=== PATIENT | female | born 1965 | race Caucasian/White ===

== ENCOUNTER 2020-10-31 12:43 | Outpatient (CLI) | payer OTHER, SELFPAY ==
[2020-11-03 18:52] LABS: SARS-CoV-2 RNA PCR Positive
== END 2020-10-31 12:44 | disposition home or self-care (01) ==
LOC: CHSLAB 12:47
PROVIDERS: PCP Family Medicine; Visit Provider Family Medicine
DX: U07.1 COVID-19 (principal)
CPT/HCPCS: 87635; C9803; U0003

== ENCOUNTER 2020-12-29 08:12 | Outpatient (CLI) | payer OTHER, SELFPAY ==
--- NOTE | ~2020-12-29 | US_ITS ---
EXAMINATION: US art doppler w press EUGENIE SOLIMAN EXAM DATE: 12/29/2020 09:20 INDICATION: Peripheral artieral disease, decreased pedal pulses bilaterally. TECHNIQUE: Segmental pressures and plethysmographic and Doppler waveforms of the brachial and lower e xtremity arteries were obtained. There is no prior study for comparison. FINDINGS: Right and left brachial artery pressures of 130 mm Hg and 130 mm Hg, respectively, are concordant (no rmal difference <= 30 mmHg). The right and left thigh-brachial pressure indices are 1.01, 1.12, resp ectively (normal > 1.2). RIGHT LEG: The ankle-brachial index (SAM) is 1.09 (normal >= 0.9-1). The great toe-brachial index (TBI) is 0.58 (normal >= 0.65). The lower extremity ratios, segmental pressure gradients as follows; Proximal superficial femoral artery:- 1.01 (131 mmHg). Distal superficial femoral artery: ----- 1.08 (141 mmHg). Popliteal: 1.25 (163 mmHg). Dorsalis pedis: 0.95 (123 mmHg). Posterior tibial: 1.09 (142 mmHg). (Normal gradients <= 20-30 mmHg between adjacent levels on the same leg or the same levels on the two legs). Arterial waveforms are biphasic. LEFT LEG: The ankle-brachial index (SAM) is 0.96 (normal >= 0.9-1). The great toe-brachial index (TBI) is 0.68 (normal >= 0.65). The lower extremity ratios, segmental pressure gradients as follows; Proximal superficial femoral artery:- 1.12 (145 mmHg). Distal superficial femoral artery: ----- 1.11 (144 mmHg). Popliteal: 1.12 (146 mmHg). Dorsalis pedis: 0.82 (107 mmHg). Posterior tibial: 0.96 (125 mmHg). (Normal gradients <= 20-30 mmHg between adjacent levels on the same leg or the same levels on the two legs). Arterial waveforms are biphasic. IMPRESSION: 1. Right ankle-brachial index 1.09, normal. 2. Left ankle-brachial index 0.96, normal. 3. Segmental pressures as above. Reviewed, dictated and finalized at location B. ER ROOM MANAGER
== END 2020-12-29 08:13 | disposition home or self-care (01) ==
PROVIDERS: PCP Family Medicine; Visit Provider Podiatrist Foot & Ankle Surgery
DX: I73.9 Peripheral vascular disease, unspecified (principal)
CPT/HCPCS: 93923

== ENCOUNTER 2021-01-03 03:55 | Emergency (ER) | payer OTHER, SELFPAY ==
[2021-01-03 04:19] VITALS: BP 147/72; PULSE 87; RESP 16; TEMP 36.9; O2SAT 96
--- NOTE | 2021-01-03 04:48 | ED.WOUNDLAC ---
HPI - Wound/Laceration General Chief Complaint: Wound/Laceration Stated Complaint: Right foot laceration Source: patient Mode of arrival: ambulatory History of Present Illness HPI narrative: Patient comes in with laceration under right third toe after stepping on the heel of a boot. Related Data Home Medications Medication Instructions Recorded Confirmed venlafaxine 75 mg capsule,extended 75 mg PO DAILY 01/03/20 01/03/21 release 24 hr terbinafine HCl 250 mg PO DAILY 01/03/21 01/03/21 Allergies Allergy/AdvReac Type Severity Reaction Status Date / Time nkda Allergy Mild Uncoded 12/24/08 08:58 Review of Systems Constitutional: Constitutional: Reports no additional constitutional complaints Eyes: Eyes: Reports no additional eye complaints ENT: Reports system reviewed and no additional complaints, except as documented Cardiovascular: Cardiovascular: Reports no additional cardiovascular complaints Respiratory: Respiratory: Reports no additional respiratory complaints Gastrointestinal: Gastrointestinal: Reports no additional gastrointestinal complaints Genitourinary: Genitourinary: Reports no additional female genitourinary complaints Musculoskeletal: Musculoskeletal: Reports no additional musculoskeletal complaints Integumentary/Breasts: Skin/Breast: Reports system reviewed and no additional complaints, except as docu Neurologic: Reports system reviewed and no additional complaints, except as documented Psychiatric: Psychiatric: Reports no additional psychiatric complaints Endocrine: Endocrine: Reports no additional endocrine complaints Hematologic/Lymphatic: Hematologic/Lymphatic: Reports no additional hematologic/lymphatic complaints Allergic/Immunologic: Allergic/Immunologic: Reports no additional allergic/immunologic complaints [facility] Past Medical History Medical History Anxiety Arthritis Asthma Depression Family History Family History Other Asthma Diabetes mellitus Family history of chronic obstructive pulmonary disease Social History Social History Smoking status: Heavy tobacco smoker Alcohol intake: current Exam Const: General: no acute distress HENMT: Head: normal to inspection Ears: external ears normal and TM's normal bilaterally Face and sinus: normal facial exam Mouth: Yes moist mucous membranes Teeth and gingiva: dentition normal Throat: posterior oropharynx normal Eyes: Conjunctivae: conjunctivae normal Pupils: Equal, round and reactive pupils present Neck: Neck: normal visual inspection and no lymphadenopathy Chest: Chest palpation & inspection: normal inspection of the chest Resp: Effort & Inspection: normal respiratory effort Auscultation: clear to auscultation bilaterally Cardio: Rate: regular rate Rhythm: regular rhythm GI: GI Palp: Yes Soft to palpation (nontender ) Skin: General skin exam: normal color Neuro: General: patient oriented x3 and moves all extremities Extrem: General: normal to inspection Psych: Appearance: grossly normal Mental Status: mental status grossly normal Thought content: Yes Normal thought content present Course Course Emergency Course: Her wound was carefully washed, foreign material was removed. Following this the wound was closed with Durabond skin adhesive. She was given Adacel injection, and then keflex 500mg Po. I will send her home with keflex tid #30, as she is diabetic, and more at risk. Vital Signs Vital signs: Vital Signs Temperature 36.9 C 01/03/21 04:19 Pulse Rate 87 01/03/21 04:19 Respiratory Rate 16 01/03/21 04:19 Blood Pressure 147/72 H 01/03/21 04:19 Pulse Oximetry 96 01/03/21 04:19 Temperature 36.9 C 01/03/21 04:19 Pulse Rate 87 01/03/21 04:19 Respiratory Rate 16 01/03/21 04:19 Blood Pressure 147/72 H 02/0
[2021-01-03] MEDS: TETANUS,DIPHTHERIA,AC PERTUSSIS ADULT 0.5 ML (ADACEL) IM (04:55)
[2021-01-03] MEDS: CEPHALEXIN 500 MG CAPSULE PO (05:00)
[2021-01-03 05:03] VITALS: BP 124/86; PULSE 80; RESP 20; TEMP 36.6; O2SAT 98
== END 2021-01-03 05:04 | disposition home or self-care (01) ==
PROVIDERS: Emergency Provider Emergency Medicine; PCP Family Medicine
DX: S91.311A Laceration without foreign body, right foot, initial encounter (principal); W45.8XXA Other foreign body or object entering through skin, initial encounter
CPT/HCPCS: 12001; 90471; 90715; 99283; A9270

== ENCOUNTER 2021-02-05 17:31 | Outpatient (CLI) | payer OTHER, SELFPAY | END 2021-02-05 17:32 | disposition home or self-care (01) | LOC: ANHCOVIDVC 17:31 | PROVIDERS: PCP Family Medicine | DX: Z23 Encounter for immunization (principal) | CPT/HCPCS: 0001A; 91300 ==

== ENCOUNTER 2021-02-17 03:43 | Emergency (ER) | payer OTHER, SELFPAY ==
--- NOTE | ~2021-02-17 | CT_ITS ---
EXAMINATION: CT abdomen pelvis wo con DATE: 02/17/2021 05:19 INDICATION: Right flank pain for one week TECHNIQUE: Computed tomography (CT) of the abdomen and pelvis was performed without intravenous contr ast. The dose-length product was 508.05 mGy-cm. Automated exposure control and iterative reconstructi on technique were employed. COMPARISON: None. FINDINGS: There is emphysema. Lingular atelectasis. Heart size normal. No significant pleural or sharmaine cardial effusion. The liver, spleen, pancreas, adrenal glands and kidneys are unremarkable. No renal stones. Gallbladde r is present. Nonobstructive bowel gas pattern. Normal appendix. No free air or free fluid. There is mild diffuse heterogeneous sclerosis throughout all skeletal structures. Laminectomy and fus ion changes at L4-5. IMPRESSION: 1. No acute abdominal abnormality. 2: Heterogeneous diffuse sclerosis of the skeletal structures. Differential diagnosis includes metast atic disease, myelofibrosis, sickle cell disease, renal osteodystrophy and hyperthyroidism. Consider bone scan. 3: Emphysema. Reviewed, dictated and finalized at location A. IMPRESSION: 1. No acute abdominal abnormality. 2: Heterogeneous diffuse sclerosis of the skeletal structures. Differential norman gnosis includes metastatic disease, myelofibrosis, sickle cell disease, renal o steodystrophy and hyperthyroidism. Consider bone scan. 3: Emphysema.
[2021-02-17 03:50] VITALS: BP 144/77; PULSE 81; RESP 20; TEMP 36.3; O2SAT 96
--- NOTE | 2021-02-17 04:14 | ECG_ITS ---
Measurements Intervals [place] Rate: 76 P: 62 AK: 158 QRS: 36 QRSD: 94 T: 42 QT: 391 QTc: 441 Interpretive Statements SINUS RHYTHM BASELINE ARTIFACT- I, II, III, AVR, AVL, AVF, V1-V6 NORMAL ECG Electronically Signed On 02-17-2021 7:00:49 CDT by Jalen Dumont D.O.
--- NOTE | 2021-02-17 04:20 | PC.NURSE ---
Pt given toredol 30 mg IVP to relieve c/o right flank pain; IV normal saline hung and infusing as ordered.
--- NOTE | 2021-02-17 04:35 | ED.BACK ---
HPI - Back Pain/Injury General Chief Complaint: Back Pain/Injury Stated Complaint: back/side pain Source: patient Mode of arrival: ambulatory Limitations: no limitations History of Present Illness HPI Narrative: This is a 55-year-old female that presents with right flank pain radiating into her right groin area rates her pain about 8/10 started approximately 1 week ago thought that she strained a muscle but the pain was persistent had tried [id number] Tylenol with minimal relief has been having some dysuria with no hematuria currently no fever chills no nausea vomiting has a history of diabetes smoking history, with some no fever chills no nausea vomiting no diarrhea or constipation. patient has a history of previous laminectomy and fusion the lower lumbar spine at L4 and 5. MD elicited complaint: back pain Onset (ago): week(s) Timing: constant Severity: moderate Similar Symptoms Previously: No Quality: dull Radiation: groin Exacerbating factors: none Relieving factors: none Associated symptoms: denies other symptoms Related Data Home Medications Medication Instructions Recorded Confirmed venlafaxine 75 mg capsule,extended 75 mg PO DAILY 01/03/20 02/17/21 release 24 hr terbinafine HCl 250 mg PO DAILY 01/03/21 02/17/21 albuterol sulfate [Ventolin HFA] 2 puff INHALATION PRN PRN 02/17/21 02/17/21 alprazolam 0.5 mg PO PRN PRN 02/17/21 02/17/21 montelukast 10 mg PO DAILY 02/17/21 02/17/21 Allergies Allergy/AdvReac Type Severity Reaction Status Date / Time nkda Allergy Mild Uncoded 12/24/08 08:58 Review of Systems Review of Systems: All systems reviewed & are unremarkable except as noted in HPI and below [facility] Past Medical History Medical History (Updated 02/17/21 @ 05:48 by Sushil Taylor MD) Anxiety Arthritis Asthma Depression Family History Family History Other Asthma Diabetes mellitus Family history of chronic obstructive pulmonary disease Social History Social History Smoking status: Heavy tobacco smoker Alcohol intake: current Exam Const: General: no acute distress and alert Orientation/consciousness: patient oriented x3 HENMT: Head: normal to inspection and contusion Eyes: Conjunctivae: conjunctivae normal Pupils: Equal, round and reactive pupils present Direct Ophthalmoscopy: no photophobia Neck: Neck: normal visual inspection, no lymphadenopathy and no meningeal signs Chest: Chest palpation & inspection: normal inspection of the chest Resp: Effort & Inspection: normal respiratory effort Auscultation: clear to auscultation bilaterally Cardio: Rate: regular rate Rhythm: regular rhythm GI: Auscultation: normal bowel sounds : General: Yes CVA tenderness Urinary Catheter: Urinary Catheter: patent and draining and urine clear Back/Spine/Pelvis: Back: CVA tenderness Skin: General skin exam: normal color Rashes: no rashes Extrem: General: normal to inspection Psych: Appearance: grossly normal Mental Status: mental status grossly normal Affect: normal affect Thought content: Yes Normal thought content present Course Course Emergency Course: Patient received IV fluids and IV Toradol and that improved her pain level. Vital Signs Vital signs: Vital Signs Temperature 36.3 C L 02/17/21 03:50 Pulse Rate 81 02/17/21 03:50 Respiratory Rate 20 02/17/21 03:50 Blood Pressure 144/77 H 02/17/21 03:50 Pulse Oximetry 96 02/17/21 03:50 Temperature 36.3 C L 02/17/21 03:50 Pulse Rate 81 02/17/21 03:50 Respiratory Rate 20 02/17/21 03:50 Blood Pressure 144/77 H 02/17/21 03:50 Pulse Oximetry 96 02/17/21 03:50 MDM - Back Pain/Injury Lab Data Result diagrams: 02/17/21 04:40 02/17/21 04:40 Labs: Lab Results 02/17/21 02/17/21 02/17/21 Range/Units 04:40 04:40 04:40 WBC 8.1 (4.8-1
[2021-02-17 04:45] LABS: Basophils Absolute Auto 0.03 K/mm3 (0.00-0.10); Basophils Percent Auto 0.4 % (0.0-1.0); Eosinophils Absolute Auto 0.09 K/mm3 (0.02-0.50); Eosinophils Percent Auto 1.1 % (1.0-6.0); Hematocrit 39.2 % (35.0-49.0); Hemoglobin 13.2 g/dL (12.0-15.0); Immature Granulocyte Absolute 0.05 K/mm3 (0.00-0.00); Immature Granulocyte Percent A 0.6 % (0.0-0.0); Lymphocytes Absolute Auto 2.14 K/mm3 (1.10-4.50); Lymphocytes Percent Auto 26.3 % (18.0-42.0); Mean Corpuscular HGB Conc 33.7 g/dL (32.0-36.0); Mean Corpuscular Hemoglobin 30.9 pg (27.0-31.0); Mean Corpuscular Volume 91.8 fL (78.0-102.0); Monocytes Absolute Auto 0.57 K/mm3 (0.10-0.90); Neutrophils Absolute Auto 5.3 K/mm3 (1.7-7.2); Neutrophils Percent Auto 64.6 % (50.0-70.0); Platelet Count Result 238 K/mm3 (150-420); Red Blood Count 4.27 M/mm3 (4.20-5.40); White Blood Count 8.1 K/mm3 (4.8-10.8)
[2021-02-17] MEDS: SODIUM CHLORIDE 0.9% IV 1,000 ML 999 ML IV CONT (04:45)
[2021-02-17 04:48] LABS: Add Urine Microscopic? NO; Appearance Urine Clear (Clear); Bilirubin Urine Negative (Negative); Blood Urine Negative (Negative); Color Urine Yellow (Yellow); Glucose Urine UA Negative (Negative); Ketones Urine Negative (Negative); Leukocyte Esterase Ur Negative LEU/UL (Negative); Nitrate Urine Negative (Negative); Protein Urine Negative (Negative); Specific Grav Ur >= 1.030 (1.010-1.020); Urobilinogen Urine 0.2 mg/dL (0.2-1.0); pH Urine 5.5 (5.0-8.0)
[2021-02-17] MEDS: KETOROLAC 30 MG/ML VIAL (*BKC) IV PUSH (04:52)
[2021-02-17 05:06] LABS: Alanine Aminotransferase 35 U/L (14-59); Albumin Level 3.2 g/dL (3.4-5.0); Alkaline Phosphatase 80 U/L (46-116); Anion Gap 18 mmol/L (8-16); Aspartate Amino Transferase 23 U/L (15-37); Bilirubin,Total 0.3 mg/dL (0.00-1.00); Blood Urea Nitrogen 15 mg/dL (7-18); Calcium 8.4 mg/dL (8.5-10.1); Carbon Dioxide 17 mmol/L (21-32); Chloride 102 mmol/L (98-108); Estimated CRCL calculation 77 ml/min; Estimated Glomerular Filt Rate > 60; Glucose 207 mg/dL (70-99); Lipase 155 U/L (73-393); Osmolality Calculated 290 mOsm/kg (285-295); Potassium 4.1 mmol/L (3.5-5.1); Sodium 137 mmol/L (136-145); Total Protein 6.5 g/dL (6.4-8.2); Troponin I 5.4 ng/L (0.00-60.4)
[2021-02-17 05:37] LABS: Lactic Acid Reflex < 0.3 mmol/L (0.4-2.0)
[2021-02-17 05:56] VITALS: BP 135/85; PULSE 81; RESP 20; TEMP 36.2; O2SAT 99
== END 2021-02-17 06:03 | disposition home or self-care (01) ==
PROVIDERS: Emergency Provider Emergency Medicine; PCP Family Medicine
DX: S39.012A Strain of muscle, fascia and tendon of lower back, initial encounter (principal)
CPT/HCPCS: 36415; 74176; 80053; 81003; 83605; 83690; 84484; 85025; 93005; 96361; 96374; 99283; 99284; J1885; J7030

== ENCOUNTER 2021-02-26 17:30 | Outpatient (CLI) | payer OTHER, SELFPAY | END 2021-02-26 17:31 | disposition home or self-care (01) | LOC: ANHCOVIDVC 17:30 | PROVIDERS: PCP Family Medicine | DX: Z23 Encounter for immunization (principal) | CPT/HCPCS: 0002A; 91300 ==

== ENCOUNTER 2021-03-02 07:50 | Outpatient (CLI) | payer OTHER, SELFPAY ==
--- NOTE | ~2021-03-02 | NM_ITS ---
EXAMINATION: NM bone scan whole body DATE: 03/02/2021 12:08 INDICATION: Disorder of bone with heterogeneous diffuse sclerosis and CT TECHNIQUE: 24.8 mCi Tc-99m HDP was administered intravenously. Delayed whole-body scintigrams were o btained. COMPARISON: CT abdomen and pelvis dated 02/17/2021 FINDINGS: Mild increased uptake in the region of the posterior elements of the lower lumbar spine corresponding to an L4-L5 posterior spinal fusion with bilateral vertical jesus and pedicle screw fixation. Mild lik king degenerative increased uptake at the radial aspect of the left carpus. Tiny foci of subtle increa sed uptake at the bilateral patellae likely also either degenerative or enthesopathic in etiology. Ot herwise physiologic distribution of bone and soft tissue activity. IMPRESSION: 1. Mild increased bone uptake associated with an L4-L5 posterior spinal fusion. 2. Mild likely osteoarthritis related uptake at the radial aspect of the left carpus and subtle degen erative or enthesopathic foci of increased uptake at the bilateral patellae. Reviewed, dictated and finalized at location B. IMPRESSION: 1. Mild increased bone uptake associated with an L4-L5 posterior spinal fusion. 2. Mild likely osteoarthritis related uptake at the radial aspect of the left c arpus and subtle degenerative or enthesopathic foci of increased uptake at the bilateral patellae.
== END 2021-03-02 07:51 | disposition home or self-care (01) ==
PROVIDERS: PCP Family Medicine; Visit Provider Family Medicine
DX: M89.9 Disorder of bone, unspecified (principal)
CPT/HCPCS: 78306; A9561

== ENCOUNTER → 2021-11-12 13:02 | Outpatient (CLI) | payer OTHER, SELFPAY ==
--- NOTE | ~2021-11-12 | DEXA_ITS ---
Bone Density Report Name: DARIUS SCHROEDER Age: 56 Sex: Female Ethnicity: White Date of : 1965 Indication: postmenopausal; screening for osteoporosis; height loss; asthma or emphysema; Referring Provider: Bonilla Kahn Study: Bone densitometry was performed. Exam Date: November 12, 2021 Accession number: [id number] Bone Density: Region BMD T-score Z-score Classification AP Spine (L1, L2, L3) 1.187 1.5 2.6 Normal Femoral Neck (Left) 0.817 -0.3 0.8 Normal Total Hip (Left) 1.069 1.0 1.7 Normal Femoral Neck (Right) 0.860 0.1 1.2 Normal Total Hip (Right) 1.124 1.5 2.2 Normal Total Hip Mean 1.097 1.3 2.0 Normal World Health Organization criteria for BMD impression classify patients as: Normal (T-score at or above -1.0), Osteopenia (T-score between -1.0 and -2.5), or Osteoporosis (T-score at or below -2.5). 10-year Fracture Risk: FRAX not reported because: All T-scores for Spine Total, Hip Total, Femoral Neck at or above -1.0 Previous Exams: Region Exam Age BMD T-score BMD Change BMD Change Date g/cm2 vs Baseline vs Previous AP Spine(L1, L2, L3) 11/12/2021 56 1.187 1.5 -0.022 -0.022 10/06/2018 53 1.209 1.7 Total Hip(Left) 11/12/2021 56 1.069 1.0 -0.044* -0.044* 10/06/2018 53 1.113 1.4 Total Hip(Right) 11/12/2021 56 1.124 1.5 -0.010 -0.010 10/06/2018 53 1.134 1.6 *Denotes significance at 95% confidence level, LSC for AP Spine = 0.022 g/cm2, LSC for Total Hip = 0.027 g/cm2 Clinical Information Provided by Patient: Smokes Has the following medical conditions: Asthma or Emphysema Patient maximum height was 66 Menopause Age: 44 No regular weight bearing exercise Drinks caffeinated beverages Onset of menses at age 15 Number of children 1 Impression: The patient has normal bone mass. The patient has risk factors, including: smoking. The BMD for the Total Hip(Left) decreased, changing by -0.044 since the last DXA exam. Discussion: BONE DENSITY IS ABOVE THE MINIMUM DESIRABLE LEVEL AT ALL SKELETAL SITES TESTED. This patient?s bone mineral density is above the minimum desirable level (T-score -1.0 or better) at all sites measured. The patient should follow a healthful lifestyle (good nutrition with adequate calcium and vitamin D, and appropriate weight-bearing exercise). Follow-Up: Consider repeating this study in 3 to 4 years to reassess this patient's status, or s
== END ==
PROVIDERS: PCP Family Medicine; Visit Provider Internal Medicine
DX: Z78.0 Asymptomatic menopausal state (principal)
CPT/HCPCS: 77080

== ENCOUNTER 2022-12-20 14:54 | Outpatient (CLI) | payer OTHER, SELFPAY ==
--- NOTE | ~2022-12-20 | XR_ITS ---
EXAMINATION: XR ribs LT 2V w CXR 2V Exam Date/Time: 12/20/2022 15:25 SURGICAL INSTRUMENT MAKER HISTORY: ACUTE COUGH/CHEST PAIN-LT UPPER Comparison: 04/03/2018, CT abdomen and pelvis 02/17/2021. RESULT: Lines, tubes, and devices: None. Lungs and pleura: Diffuse bilateral and peripheral reticulonodular opacities. Emphysematous changes Minimal left posterior costophrenic angle blunting. Cardiothymic silhouette: Stable. Other: No acute osseous or upper abdominal finding. IMPRESSION: Pulmonary opacities may represent bronchiolitis, as can be seen with atypical infection, asthma, aspi ration, and small airways disease. Trace left pleural effusion versus chronic pleural scarring. No ac hoopa osseous finding in the left ribs. Reviewed, dictated and finalized at location K. ICAL INSTRUMENT MAKER IMPRESSION: Pulmonary opacities may represent bronchiolitis, as can be seen with atypical i nfection, asthma, aspiration, and small airways disease. Trace left pleural eff usion versus chronic pleural scarring. No acute osseous finding in the left rib s.
== END 2022-12-20 14:55 | disposition home or self-care (01) ==
LOC: CHSIMG 14:58
PROVIDERS: PCP Family Medicine; Visit Provider Family Medicine
DX: R05.1 Acute cough (principal); R07.89 Other chest pain; R91.8 Other nonspecific abnormal finding of lung field
CPT/HCPCS: 71046; 71100

== ENCOUNTER → 2023-01-31 17:32 | Outpatient (CLI) | payer OTHER, SELFPAY ==
--- NOTE | ~2023-01-31 | XR_ITS ---
EXAMINATION: XR chest 2V DATE: 01/31/2023 17:45 INDICATION: Cough. TECHNIQUE: Frontal and lateral views of the chest were obtained. COMPARISON: Chest 2 views 12/20/2022, CT abdomen and pelvis 02/17/2021 FINDINGS: There are lucencies in the lungs, consistent with emphysema. There are airspace opacities i n all lung zones with a mid zone predominance. No pleural effusion or pneumothorax. The heart size is normal. IMPRESSION: 1. Diffuse lung disease, likely pneumonia superimposed on emphysema. Reviewed, dictated and finalized at location A. R FITNESS INSTRUCTOR
== END ==
PROVIDERS: PCP Family Medicine; Visit Provider Family Medicine
DX: R05.2 Subacute cough (principal); J98.4 Other disorders of lung
CPT/HCPCS: 71046

== ENCOUNTER 2023-04-20 13:50 | Outpatient (CLI) | payer OTHER, SELFPAY ==
[2023-04-20 14:00] VITALS: PULSE 90; O2SAT 91
[2023-04-20 14:05] VITALS: PULSE 100; O2SAT 86
[2023-04-20 14:10] VITALS: PULSE 104; O2SAT 88
[2023-04-20 14:15] VITALS: PULSE 105; O2SAT 90
[2023-04-20 14:30] VITALS: PULSE 91; O2SAT 91
--- NOTE | 2023-04-20 14:48 | HOMEO2EVAL ---
Evaluation was performed at [facility] Home Oxygen Evaluation RC: Home Oxygen (O2) Evaluation Start: 04/20/23 14:45 Freq: Status: Active Protocol: RPE Activity Type Activity Date Activity User E-sign Co-sign Detail Recorded Client Recorded Date Recorded By Document 04/20/23 14:00 [email or web address] [email or web address] 04/20/23 14:47 DJO Document 04/20/23 14:05 [email or web address] [email or web address] 04/20/23 14:47 DJO Document 04/20/23 14:10 [email or web address] [email or web address] 04/20/23 14:47 DJO Document 04/20/23 14:15 [email or web address] [email or web address] 04/20/23 14:47 DJO Document 04/20/23 14:30 [email or web address] [email or web address] 04/20/23 14:47 DJO 04/20/23 04/20/23 04/20/23 14:00 14:05 14:10 Home O2 Evaluation [Oxygen] -Test Phase Resting Exercise Exercise -Oxygen Delivery Room Air Nasal Cannula Nasal Cannula -Oxygen Flow Rate (L/min) 1 [Pulse Oximetry] -Pulse Oximetry (90-100 %) 91 86 L 88 L [Pulse Rate] -Pulse Rate (60-100 beats/min) 90 100 104 H [Evaluation] -Activity Tolerance [Exercise] -Ambulation Distance (feet) -Ambulation Distance (meters) [Charges] -Treatment Charges O2 Evaluation - Outpatient 04/20/23 04/20/23 14:15 14:30 Home O2 Evaluation [Oxygen] -Test Phase Exercise Resting -Oxygen Delivery Nasal Cannula Room Air -Oxygen Flow Rate (L/min) 2 [Pulse Oximetry] -Pulse Oximetry (90-100 %) 90 91 [Pulse Rate] -Pulse Rate (60-100 beats/min) 105 H 91 [Evaluation] -Activity Tolerance Good [Exercise] -Ambulation Distance (feet) 750 -Ambulation Distance (meters) 228.58 [Charges] -Treatment Charges
--- NOTE | 2023-04-21 15:45 | WPDPFTINT ---
PFT Procedure Performed PFT Procedure Performed Spirometry with Pre/Post Bronchodilator Plethysmography (Lung Vol) Diffusing Cap (DLCO) Flow Vol Loop PFT Interpretation Lung volumes were measured with the body plethysmography method. The elevated FRC and RV are indicative of air trapping. The remaining lung volumes are unremarkable. Spirometry showed diminished expiratory flow rates and a diminished FEV1 to FVC ratio 46%, indicative of obstructive airway disease. Following administration of a bronchodilator there was significant increase in the FVC. Lung diffusion capacity is severely reduced at 33% predicted. The flow-volume loop is consistent with emphysema. Impression: Severe obstructive airway disease with evidence of air trapping and significant response to bronchodilators on this testing. Severely reduced lung diffusion capacity.
== END 2023-04-20 13:51 | disposition home or self-care (01) ==
PROVIDERS: Visit Provider Internal Medicine Pulmonary Disease
DX: J44.9 Chronic obstructive pulmonary disease, unspecified (principal); Z87.891 Personal history of nicotine dependence; R94.2 Abnormal results of pulmonary function studies
CPT/HCPCS: 94060; 94618; 94726; 94729

== ENCOUNTER → 2023-04-21 14:58 | Outpatient (CLI) | payer OTHER, SELFPAY ==
--- NOTE | ~2023-04-21 | CT_ITS ---
EXAMINATION:CT lung screening DATE: 04/21/2023 15:27 INDICATION: Personal history of tobacco dependence. Current smoker with 40 pack year history. TECHNIQUE: Computed tomography (CT) of the chest was performed without intravenous contrast. Automate d exposure control and iterative reconstruction technique were employed. The dose-length product (DLP ) was 68.78 mGy-cm. COMPARISON: CT abdomen and pelvis 02/17/2021, chest 2 views 01/31/23, 04/03/2018, 12/20/22 FINDINGS: There is moderate emphysema. There are scattered airspace and groundglass opacities involvi ng all lobes. There are areas of cavitation within airspace opacities in the lower lobes. There is mi ld bronchiectasis in right middle lobe and lingula. No pleural effusion. No pleural effusion. The hea rt size is normal. No pericardial effusion. The central pulmonary arteries are enlarged consistent wi th pulmonary arterial hypertension. There is mild mediastinal lymphadenopathy, likely reactive. There is mild thoracic spondylosis. IMPRESSION: 1. Lung-RADS category 0: Incomplete. Multifocal pneumonia with improvement from 01/31/23. Noncontrast, low-dose chest CT is recommended in 3 months. Reviewed, dictated and finalized at location E.
== END ==
PROVIDERS: PCP Internal Medicine Pulmonary Disease; Visit Provider Internal Medicine Pulmonary Disease
DX: Z12.2 Encounter for screening for malignant neoplasm of respiratory organs (principal); J18.9 Pneumonia, unspecified organism; Z87.891 Personal history of nicotine dependence
CPT/HCPCS: 71271

== ENCOUNTER → 2023-06-08 16:26 | Outpatient (CLI) | payer OTHER, SELFPAY ==
--- NOTE | ~2023-06-08 | XR_ITS ---
EXAMINATION: XR chest 2V DATE: 06/08/2023 16:49 INDICATION: Pneumonia, unspecified organism. TECHNIQUE: Frontal and lateral views of the chest were obtained. COMPARISON: Chest 2 views 01/31/23, chest CT 04/21/2023 FINDINGS: There are lucencies in the lungs, consistent with emphysema. There are patchy airspace opac ities in the mid and upper lung zones. No pleural effusion or pneumothorax. The heart size is normal. IMPRESSION: 1. Multifocal lung disease with improvement from 02/01/2023, consistent with pneumonia. 2. Emphysema. Reviewed, dictated and finalized at location E. IMPRESSION: 1. Multifocal lung disease with improvement from 02/01/2023, consistent with pneu monia. 2. Emphysema.
== END ==
PROVIDERS: PCP Internal Medicine Pulmonary Disease; Visit Provider Internal Medicine Pulmonary Disease
DX: J18.9 Pneumonia, unspecified organism (principal); J43.9 Emphysema, unspecified
CPT/HCPCS: 71046

== ENCOUNTER 2024-08-03 15:52 | Outpatient (CLI) | payer OTHER, SELFPAY ==
--- NOTE | ~2024-08-03 | CT_ITS ---
EXAMINATION:CT lung screening DATE: 08/03/2024 16:09 INDICATION: Personal history of nicotine dependence. Current smoker with 20 pack year history. TECHNIQUE: Computed tomography (CT) of the chest was performed without intravenous contrast. Automate d exposure control and iterative reconstruction technique were employed. The dose-length product (DLP ) was 112.67 mGy-cm. COMPARISON: Chest CT 04/21/2023 FINDINGS: There is severe emphysema. There are scattered nodules and masses in the lungs. For example , there is a 6.0 x 5.3 cm thick-walled cavitary mass in right lung lower lobe. There is a 4.3 x 1.7 c m mass in left lower lobe. There is a 3.6 x 1.7 cm mass in right upper lobe. The widespread lung find ings are improved from 04/21/2023. No pleural effusion. The heart size is normal. No pericardial effus ion. There is mild thoracic spondylosis. IMPRESSION: 1. Lung-RADS category 2S: Benign appearance or behavior. Continue annual screening with noncontrast l ow-dose chest CT in 12 months. 2. Multifocal lung disease with improvement from 04/21/2023, consistent with chronic pneumonia. Reviewed, dictated and finalized at location A. IMPRESSION: 1. Lung-RADS category 2S: Benign appearance or behavior. Continue annual screen ing with noncontrast low-dose chest CT in 12 months. 2. Multifocal lung disease with improvement from 04/21/2023, consistent with chr onic pneumonia.
== END 2024-08-03 15:53 | disposition home or self-care (01) ==
LOC: MICIMG 15:53
PROVIDERS: PCP Family Medicine; Visit Provider Physician Assistant
DX: Z12.2 Encounter for screening for malignant neoplasm of respiratory organs (principal); R91.8 Other nonspecific abnormal finding of lung field; Z87.891 Personal history of nicotine dependence
CPT/HCPCS: 71271

== ENCOUNTER 2024-11-26 15:00 | Outpatient (CLI) | payer OTHER, SELFPAY ==
--- NOTE | ~2024-11-26 | XR_ITS ---
CHEST RADIOGRAPH, PA AND LATERAL CLINICAL HISTORY: PULMONARY MYCOBACTERIAL INFECTION . COMPARISON: 06/08/2023 and 01/31/2023. Reference is also made to a CT examination of the chest dated 08/03/2024. TECHNIQUE: PA and lateral views of the chest. FINDINGS The cardiomediastinal silhouette is unremarkable. Redemonstration of parenchymal nodularity seen on previous CT examination. An air-fluid level is identified adjacent to the right hilum, measuring approximately 5 to 6 cm large ly unchanged from prior. 19 x 20 mm nodule within the left mid to upper lung field, increased in size from previous examinatio n when it measured 16 x 18 mm. Further evaluation with cross-sectional imaging may provide additional information, patient is clinic ally able. IMPRESSION: Redemonstration of parenchymal nodularity for which repeat evaluation with CT would provide additiona l information. (If the patient is clinically able) Reviewed, dictated and finalized at location A. E SUPERVISOR IMPRESSION: Redemonstration of parenchymal nodularity for which repeat evaluation with CT w ould provide additional information. (If the patient is clinically able)
== END 2024-11-26 15:01 | disposition home or self-care (01) ==
LOC: MICIMG 15:04
PROVIDERS: PCP Family Medicine; Visit Provider Internal Medicine Infectious Disease
DX: A31.0 Pulmonary mycobacterial infection (principal)
CPT/HCPCS: 71046

== ENCOUNTER 2025-08-30 16:00 | Outpatient (CLI) | payer OTHER, SELFPAY ==
--- NOTE | ~2025-08-30 | XR_ITS ---
EXAMINATION: XR chest 2V, 08/30/2025 16:10 CDT HISTORY: Pulmonary mycobacterial infection COMPARISON: Comparison CT 08/03/2024 Technique: 2 views obtained. Findings: Scattered bilateral infiltrates with some areas of ill-defined nodularity the largest in the left upper lobe 1.1 x 1 cm, largest focus of the right lower lobe 2.5 x 2.5 cm. No pneumothorax. Heart is normal size. Mediastinal and hilar contours are within normal limits. Bony thorax no acute abnormality. Impression: Bilateral pneumonia. Bilateral nodular densities with suggestion of underlying cavitation. These findings appear relatively unchanged compared to the previous CT however repeat CT is suggested for more direct comparison Reviewed, dictated and finalized at location P. Impression: Bilateral pneumonia. Bilateral nodular densities with suggestion of underlying cavitation. These findings appear relatively unchanged compared to the previous CT however repeat CT is suggested for more direct comparison
== END 2025-08-30 16:01 | disposition home or self-care (01) ==
PROVIDERS: PCP Family Medicine; Visit Provider Internal Medicine Infectious Disease
DX: A31.0 Pulmonary mycobacterial infection (principal); J18.9 Pneumonia, unspecified organism
CPT/HCPCS: 71046

== ENCOUNTER 2025-11-10 14:54 | Emergency (ER) | payer OTHER, SELFPAY ==
[2025-11-10] VITALS (17 sets, daily range): BP systolic 121–157; BP diastolic 58–75; PULSE 78–88; RESP 18–20; O2SAT 93–98
--- OUTSIDE RECORDS SUMMARY | 2025-11-10 14:57 | XMS_ITS | Clinical Summary ---
Author Organization [facility] Address [address] [place] [address] Care Team Providers Care Electronics Supervisor Name Role Phone Unavailable Primary Care Provider Unavailabl e Source Comments [facility],non-owned Affiliates and Associated Physician Practices is amultiple site organization consisting of ambulatory clinics and hospital sitesin [place], [place], [place] and [place]. This disclosure is being madepursuant to the Care Everywhere program and may not contain all information available regarding this patient. Last updated 18.[facility] Social History Tobacco Use Types Packs/Day Years Used Date Smoking Tobacco: Never Assessed Comments Unknown Sex and Gender Information Value Date Recorded Sex Assigned at Not on file Legal Sex Female 7:27 AM INFORMATION TECH Gender Identity Not on file Sexual Orientation Not on file Plan of Treatment Health Maintenance Due Date Last Done Comments COLOGUARD (AGES 45-75) - COL ON CA SCREENING 1966 COLON MONITORING 1966 COLONOSCOPY - COLON CA SCREENING 1966 CT COLONOGRAPHY - COLON CA SCREENING 1966 Colorectal Cancer Screening 1966 FIT - COLON CA SCREENING 1966 FLEX SIG - COLON CA SCREENING 1966 LIPID TESTING 1966 MAMMOGRAM 1966 HIV SCREENING 1981 HEPATITIS C SCREENING 04/28/1984 DTAP/TDAP/TD VACCINES (1 - Tdap) 1985 HEPATITIS B VACCINE (1 of 3 - 19+ 3-dose series) 1985 PNEUMOCOCCAL VACCINE 50+ (1 of 1 - PCV) 2016 ZOSTER VACCINE (1 of 2) 2016 DEPRESSION SCREENING 11/28/2024 COVID-19 VACCINE (1 - 2024-2 6 season) 2025 INFLUENZA VACCINE (#1) 2025 HIB VACCINE Aged Out No longer eligi ble based on patient's age to complete this topic HPV VACCINE Aged Out No longer eligi ble based on patient's age to complete this topic MENINGOCOCCAL (Group B) VACC INE SHARED DECISION-MAKING Aged Out No longer eligibl e based on patient's age to complete this topic MENINGOCOCCAL GROUPS A/C/Y/W VACCINE Aged Out No longer eligible b ased on patient's age to complete this topic
--- NOTE | 2025-11-10 14:59 | ED.GENADULT ---
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 She took her last dose of Lantus 38 units yesterday afternoon. She took place pro 38 20 minutes prior to coming to the ED. patient is stressed secondary to her mother's hospitalization and hands she accidentally took the lispro. She has been asymptomatic. No lightheadedness. No palpitation/Sweating/ nausea or vomiting. Patient has a continuous glucose monitoring system which is recording 139 at this time. Associated symptoms: denies other symptoms Related Data Home Medications ?Medication ?Instructions ?Recorded ?Confirmed ?Last Taken ?Type alprazolam 0.5 mg tablet 0.5 mg PO PRN PRN Anxiety 02/17/21 07/02/25 Unknown History montelukast 10 mg tablet 10 mg PO DAILY 02/17/21 07/02/25 Unknown History insulin glargine 100 unit/mL (3 unit subcut 08/11/23 07/02/25 Unknown History mL) subcutaneous pen (Lantus Solostar U-100 Insulin) ethambutol 400 mg tablet 1,000 mg PO DAILY 02/03/24 07/02/25 Unknown History ezetimibe 10 mg tablet 10 mg PO DAILY 02/03/24 07/02/25 Unknown History atorvastatin 80 mg tablet 80 mg PO DAILY 07/18/24 07/02/25 Unknown History azithromycin 600 mg tablet 600 mg PO DAILY 07/02/25 07/02/25 Unknown History glimepiride 2 mg tablet 2 mg PO QAM 07/02/25 07/02/25 Unknown History ipratropium bromide 21 mcg (0.03 2 spray intranasal BID 07/02/25 07/02/25 Unknown History %) nasal spray venlafaxine 75 mg capsule,extended 150 mg PO DAILY 07/02/25 07/02/25 Unknown History release 24 hr (Effexor XR) Allergies Allergy/AdvReac Type Severity Reaction Status Date / Time No Known Allergies Allergy Verified 07/02/25 08:56 Review of Systems Review of Systems: All systems reviewed & are unremarkable except as noted in HPI and below Constitutional: Constitutional: Reports as per HPI and Reports no additional constitutional complaints Eyes: Eyes: Reports as per HPI and Reports no additional eye complaints ENT: Reports system reviewed and no additional complaints, except as documented and Reports as per HPI Cardiovascular: Cardiovascular: Reports as per HPI and Reports no additional cardiovascular complaints Respiratory: Respiratory: Reports as per HPI and Reports no additional respiratory complaints Comments: Chronic cough, sputum production and shortness of breath. Gastrointestinal: Gastrointestinal: Reports as per HPI and Reports no additional gastrointestinal complaints Genitourinary: Genitourinary: Reports no additional female genitourinary complaints and Reports as per HPI Musculoskeletal: Musculoskeletal: Reports no additional musculoskeletal complaints and Reports as per HPI Integumentary/Breasts: Skin/Breast: Reports system reviewed and no additional complaints, except as docu and Reports as per HPI Neurologic: Reports system reviewed and no additional complaints, except as documented and Reports as per HPI Psychiatric: Psychiatric: Reports no additional psychiatric complaints, Reports as per HPI and Reports anxiety Endocrine: Endocrine: Reports no additional endocrine complaints and Reports as per HPI Hematologic/Lymphatic: Hematologic/Lymphatic: Reports no additional hematologic/lymphatic complaints and Reports as per HPI Allergic/Immunologic: Allergic/Immunologic: Reports no additional allergic/immunologic complaints and Reports as per HPI PMFSH Past Medical History Medical History Deviated nasal septum Anxiety Depression Asthma Arthritis Family History Family History Father , Emphysema complications COPD (chronic obstructive pulmonary disease) Asthma Emphysema lung Mother No problems noted. Other Diabetes mellitus Family history of chronic obstructive pulmonary disease Social History Social History Social History: Caffeine-coffee Smoking packs per day: 0.50 Smoking cigarettes per day: 10.0 Years smoked: 40 Smoking pack-years: 20.00 Smoking status: Current every day smoker Tobacco type: cigarettes Alcohol intake: current Alcohol use details: rarely Substance use: never Substance use type: does not use Lack of Transportation: No Lack of Food: Never True Current Housing: I Have Housing Concerned About Future Housing: No Difficulty Paying Gas/Electric Bills: No Difficulty Paying for Meds: No Currently Unemployed: No Education: Associate Degree Difficulty w/ Childcare or Family Care: No Living arrangements: with family Occupation/Education: occupation Gender identity (if verbalized by the patient): Female Exam Narrative: Pulse of 94. Blood pressure 135/84. Oxygen saturation of 95% on room. Const: Orientation/consciousness: patient oriented x3 Limitations: no limitations HENMT: Head: normal to inspection Ears: external ears normal Face/Nose/Sinus: Normal external nose present Face and sinus: normal facial exam Mouth: Yes Normal oral and palatal mucosa present Throat: posterior oropharynx normal Eyes: Conjunctivae: conjunctivae normal Pupils: Equal, round and reactive pupils present EOM: EOMs intact bilaterally Direct Ophthalmoscopy: no photophobia Neck: Neck: normal visual inspection and no lymphadenopathy Chest: Chest palpation & inspection: normal inspection of the chest and abnormal inspection of the chest Resp: Effort & Inspection: normal respiratory effort Auscultation: diminished lung sounds Cardio: Rate: regular rate Rhythm: regular rhythm GI: GI Palp: Yes Soft to palpation Auscultation: normal bowel sounds Other: No tenderness/rigidity/rebound. : General: Yes no CVA tenderness Back/Spine/Pelvis: Back: no CVA tenderness Skin: General skin exam: normal color Rashes: no rashes Wounds: no wounds Neuro: General: patient oriented x3, moves all extremities, no meningeal signs, no focal motor deficits and CN's II-XI intact bilaterally Cranial nerves: Yes Nystagmus not present Speech: normal speech Gait exam (Neuro): Normal gait present Extrem: General: normal to inspection and no clubbing, cyanosis or edema Psych: Mental Status: mental status grossly normal Affect: normal affect Attitude: cooperative Course Course Emergency Course: Accidental insulin overdose--patient took 38 units of lispro. Blood sugars during her ER stay over a period of 2 hours has remained stable around 140. Patient has eaten sandwich, peanut butter and biscuits. Vital Signs Vital signs: Vital Signs Respiratory Rate 18 11/10/25 14:54 Pulse Rate 88 11/10/25 16:31 Respiratory Rate 20 11/10/25 16:31 Blood Pressure 121/67 11/10/25 16:31 Pulse Oximetry 93 11/10/25 16:32 Oxygen Delivery Room Air 11/10/25 16:31 [facility] Narrative Medical decision making narrative: Accidental insulin overdose Differential Diagnosis Differential Diagnosis: Anxiety Lab Data [facility] Lab Attestation statement: I personally reviewed the patient's lab results. 11/10/25 15:28 11/10/25 15:28 Labs: Lab Results 11/10/25 Range/Units 15:28 WBC 6.2 (4.8-10.8) K/mm3 RBC 4.09 L (4.20-5.40) M/mm3 Hgb 12.3 (12.0-15.0) g/dL Hct 37.8 (35.0-49.0) % MCV 92.4 (78.0-102.0) fL MCH 30.1 (27.0-31.0) pg MCHC 32.5 (32-36) g/dL RDW 11.9 (11.6-14.4) % Plt Count 261 (150-420) K/mm3 MPV 10.7 (9.2-11.8) fl Immature Gran % (Auto) 0.5 H (0.0-0.0) % Neut % (Auto) 62.1 (50.0-70.0) % Lymph % (Auto) 30.3 (18.0-42.0) % [place] % (Auto) 5.8 (2.0-11.0) % Eos % (Auto) 1.0 (1.0-6.0) % Baso % (Auto) 0.3 (0.0-1.0) % Lymph # (Auto) 1.87 (1.10-4.50) K/mm3 [place] # (Auto) 0.36 (0.10-0.90) K/mm3 Eos # (Auto) 0.06 (0.02-0.50) K/mm3 Baso # (Auto) 0.02 (0.00-0.10) K/mm3 Abs Immat Gran (auto) 0.03 H (0.00-0.00) K/mm3 Absolute Neuts (auto) 3.83 (1.70-7.20) K/mm3 Absolute Nucleated RBC 0.00 (0.00-0.00) K/mm3 Nucleated RBC % 0.0 (0-0.0) % Sodium 142 (137-145) mmol/L Potassium 3.5 (3.4-5.0) mmol/L Chloride 108 H (98-107) mmol/L Carbon Dioxide 23 (22-30) mmol/L Anion Gap 11 (4-12) mmol/L BUN 13 (7-17) mg/dL Creatinine 0.71 (0.7-1.0) mg/dL Estim Creat Clear Calc Not Reportable Estimated GFR > 60 (59 - ) Glucose 117 H (65-110) mg/dL Calculated Osmolality 295 (285-295) mOsm/kg Calcium 9.0 (8.4-10.2) mg/dL Total Bilirubin 0.5 (0.2-1.3) mg/dL AST 23 (14-36) U/L ALT 24 (6-35) U/L Alkaline Phosphatase 83 (38-126) U/L Total Protein 7.2 (6.3-8.2) g/dL Albumin 4.4 (3.5-5.1) g/dL Discharge Plan Discharge Clinical Impression: Accidental overdose of insulin Patient Disposition: Home Condition: Stable Instructions: Antibiotic Form, Hypoglycemia in a Person with Diabetes (DC) Patient Language: Burmese Prescriptions: No Action alprazolam 0.5 mg tablet 0.5 mg PO PRN PRN (Reason: Anxiety) montelukast 10 mg tablet 10 mg PO DAILY venlafaxine [Effexor XR] 75 mg capsule,extended release 24hr 150 mg PO DAILY atorvastatin 80 mg tablet 80 mg PO DAILY glimepiride 2 mg tablet 2 mg PO QAM Rx Instructions: administer with breakfast azithromycin 600 mg tablet 600 mg PO DAILY ipratropium bromide 21 mcg (0.03 %) spray,non-aerosol 2 spray intranasal BID Rx Instructions: administer into each nostril ethambutol 400 mg tablet 1,000 mg PO DAILY ezetimibe 10 mg tablet 10 mg PO DAILY insulin glargine [Lantus Solostar U-100 Insulin] 100 unit/mL (3 mL) insulin pen subcut Trulicity 4.5 mg/0.5 mL pen injector See Rx Instructions .ROUTE .COMPLEX Qty: 12 0RF Dose Instruction: INJECT 4.5 MG (0.5ML) SUBCUTANEOUSLY WEEKLY FOR 90 DAYS Rx Instructions: INJECT 4.5 MG (0.5ML) SUBCUTANEOUSLY WEEKLY FOR 90 DAYS (DME) FreeStyle Timi 14 Day Sensor Kit See Rx Instructions .ROUTE .MEDSUPPLY Qty: 2 1RF Rx Instructions: Replace every 14 days metformin 1,000 mg tablet See Rx Instructions .ROUTE .COMPLEX Qty: 180 0RF Dose Instruction: Take 1 tablet by mouth twice daily Rx Instructions: Take 1 tablet by mouth twice daily albuterol sulfate 90 mcg/actuation HFA aerosol inhaler See Rx Instructions .ROUTE .COMPLEX Qty: 9 5RF Dose Instruction: INHALE 2 PUFFS BY MOUTH EVERY 4 TO 6 HOURS NEEDED FOR SHORTNESS OF BREATH Rx Instructions: INHALE 2 PUFFS BY MOUTH EVERY 4 TO 6 HOURS NEEDED FOR SHORTNESS OF BREATH Anoro Ellipta 62.5-25 mcg/actuation blister with device See Rx Instructions .ROUTE .COMPLEX Qty: 60 5RF Dose Instruction: Inhale 1 puff by mouth once daily Rx Instructions: Inhale 1 puff by mouth once daily Follow-up/Referrals: UNKNOWN,DOCTOR [Non-Staff] Time of Disposition: 16:56
[2025-11-10 15:32] LABS: Hematocrit 37.8 % (35.0-49.0); Hemoglobin 12.3 g/dL (12.0-15.0); Immature Granulocyte Percent A 0.5 % (0.0-0.0); Lymphocytes Absolute Auto 1.87 K/mm3 (1.10-4.50); Mean Corpuscular HGB Conc 32.5 g/dL (32-36); Mean Corpuscular Hemoglobin 30.1 pg (27.0-31.0); Mean Corpuscular Volume 92.4 fL (78.0-102.0); Nucleated Red Blood Cells Absolute Auto 0.00 K/mm3 (0.00-0.00); Nucleated Red Blood Cells Perc 0.0 % (0-0.0); Platelet Count Result 261 K/mm3 (150-420); Red Blood Count 4.09 M/mm3 (4.20-5.40); White Blood Count 6.2 K/mm3 (4.8-10.8)
[2025-11-10 15:43] LABS: Alanine Aminotransferase 24 U/L (6-35); Albumin Level 4.4 g/dL (3.5-5.1); Alkaline Phosphatase 83 U/L (38-126); Anion Gap 11 mmol/L (4-12); Aspartate Amino Transferase 23 U/L (14-36); Bilirubin,Total 0.5 mg/dL (0.2-1.3); Calcium 9.0 mg/dL (8.4-10.2); Carbon Dioxide 23 mmol/L (22-30); Chloride 108 mmol/L (98-107); Glucose 117 mg/dL (65-110); Potassium 3.5 mmol/L (3.4-5.0); Sodium 142 mmol/L (137-145); Total Protein 7.2 g/dL (6.3-8.2)
[2025-11-10 15:48] LABS: Blood Urea Nitrogen 13 mg/dL (7-17); Estimated Glomerular Filt Rate > 60; Osmolality Calculated 295 mOsm/kg (285-295)
[2025-11-10] MEDS: GLUCAGON FOR INJ 1 MG VIAL SUB-Q (16:59)
== END 2025-11-10 17:05 | disposition home or self-care (01) ==
PROVIDERS: Emergency Provider Internal Medicine Critical Care Medicine; PCP Family Medicine
DX: T38.3X1A Poisoning by insulin and oral hypoglycemic [antidiabetic] drugs, accidental (unintentional), initial encounter (principal); E11.9 Type 2 diabetes mellitus without complications; E78.5 Hyperlipidemia, unspecified; J44.9 Chronic obstructive pulmonary disease, unspecified; F41.9 Anxiety disorder, unspecified; F17.210 Nicotine dependence, cigarettes, uncomplicated; Z79.899 Other long term (current) drug therapy; Z79.4 Long term (current) use of insulin
CPT/HCPCS: 36415; 80053; 82948; 85025; 99283; J1610